=== PATIENT | female | born 1965 | race Caucasian/White ===

== ENCOUNTER 2018-08-22 05:58 | Inpatient (IN) | payer OTHER ==
[2018-08-12 11:12] LABS: ABSOLUTE BASOPHILS 0.1 thou/uL (0.0-0.2); ABSOLUTE EOSINOPHILS 0.2 thou/uL (0.0-0.7); ABSOLUTE LYMPHOCYTES 2.4 thou/uL (0.8-5.3); ABSOLUTE MONOCYTES 0.7 thou/uL (0.0-1.2); ABSOLUTE NEUTROPHILS 4.3 thou/uL (1.6-8.1); BASOPHILS 1.3 %; EOSINOPHILS 2.2 %; HEMATOCRIT 41.1 % (37.0-47.0); HEMOGLOBIN 13.4 gm/dL (12.0-15.0); MCH 29.5 pg (26.0-34.0); MCHC 32.5 g/dL (28.0-37.0); MCV 90.9 fL (80.0-100.0); MONOCYTES 8.8 %; MPV 6.7 fl. (7.2-11.1); NUCLEATED RBCS 0 /100WBC; PLATELET COUNT* 404 thou/uL (150-400); POLYS 56.7 %; RBC 4.52 mil/uL (4.20-5.00); RDW-CV 15.4 % (10.5-14.5); WBC 7.6 thou/uL (4.0-11.0)
[2018-08-12 11:26] LABS: APTT 26.6 Seconds (25.0-31.3); PROTIME 10.1 Seconds (9.20-11.50)
[2018-08-12 11:32] LABS: ALBUMIN 3.2 g/dL (3.4-5.0); CALCIUM 9.1 mg/dL (8.5-10.1); POTASSIUM 4.1 mmol/L (3.5-5.1); TOTAL BILIRUBIN 0.4 mg/dL (<0.1-1.0); TOTAL PROTEIN 6.9 g/dL (6.4-8.2)
[2018-08-12 12:13] LABS: ESR (SEDRATE) 26 mm/hr (0-30)
[2018-08-12 19:12] LABS: GLYCOHEMOGLOBIN (HGB A1C) 5.9 % (4.8-5.6)
--- NOTE | 2018-08-14 15:32 | EKG ---
[place] [address] ELECTROCARDIOGRAM REPORT Name: JACEY SANCHEZ Room: PRE [facility]#: [id number] Admission: Attend Phys: Lupillo Carpio DO Discharge: Date of : 61 Report #: [id number] THIS REPORT FOR: //name// [facility] Test Date: 2018-08-12 Test Time: 11:06:18 Pat Name: JACEY SANCHEZ Department: Room: Gender: F Environmental Health Technologist: : 1965 Requested By: Lupillo Carpio Order Number: [id number] Reading MD: David iTdwell Measurements Intervals [place] Rate: 81 P: 41 NH: 148 QRS: 91 QRSD: 89 T: 43 QT: 362 QTc: 421 Interpretive Statements Sinus rhythm No previous ECG available for comparison Electronically Signed On 08-14-2018 15:32:04 QUOTATION CHECKER by David Tidwell [email or web address] <ELECTRONICALLY SIGNED> By: David Tidwell MD, [facility] 08/14/18 1532 1106 1106 David Tidwell MD, FACC /EPI
[~2018-08-22] VITALS: Ht 167.6 cm; Wt 117.1 kg
[~2018-08-22 05:58] MED LIST: AMBIEN 5 MG TABL5 M1 PO; CALCIUM500 MG PO; FLEXERIL PO; LISINOPRIL5 MG PO; MELATONIN3 MG PO; PRILOSEC 20 MG20 MG PO; PRINIVIL20 MG PO; SERTRALINE HCL50 MG PO; SIMVASTATIN40 MG PO; SYNTHROID125 MC1 PO; TRAMADOL 50 MG50 MG PO; UNICOMPLEX M TA1 TA1 PO; ZANAFLEX4 MG PO
[2018-08-22 06:30] VITALS: BP 133/78
[2018-08-22 17:00] VITALS: BP 123/63
[2018-08-22 17:30] VITALS: BP 118/64
[2018-08-22 18:00] VITALS: BP 122/68
--- NOTE | 2018-08-22 18:44 | NUR ---
VSS-AFEBRILE. LUNGS CLEAR-ROOM AIR. PAIN PARTIALLY CONTROLLED WITH PRESCRIBED PAIN MEDICATIONS. TOLERATED ORAL PAIN MEDS WELL FULL LIQUID DINNER WITHOUT REPORTS OF N/V. ICE PACK APPLIED TO LEFT HIP FOR COMFORT. ABLE TO FERNANDO, ALL SENSATION INTACT. MCCULLOUGH CATHETER DRAINING ADEQUATE AMOUNTS OF CLEAR YELLOW URINE TO DEPENDENT DRAINAGE BAG. CALLS APPROPRIATELY FOR ANY NEEDED ASSISTANCE.
[2018-08-23] VITALS: BP 97/59
[2018-08-23 04:00] VITALS: BP 118/64
[2018-08-23 04:25] LABS: HEMOGLOBIN 11.2 gm/dL (12.0-15.0)
--- NOTE | 2018-08-23 07:25 | NUR ---
PATIENT HAS SLEPT OFF AND ON DURING THE NIGHT BUT RESTLESS AT TIMES. VSS ON 2L 02 VIA NASAL CANNULA. MEDICATIONS GIVEN ORDERED AND CHARTED. DRESSING TO LEFT HIP IS C/D/I, SCD'S AND EBONY HOSE IN PLACE. NEW RIGHT EJ-SL. MCCULLOUGH TO DEPENDENT DRAINAGE WITH YELLOW URINE OUTPUT. PATIENT INSTRUCTED TO USE CALL LIGHT WHEN NEEDING ASSISTANCE. HOURLY ROUNDS MADE. WILL CONTINUE WITH PLAN OF CARE AND NURSING TO MONITOR.
[2018-08-23 08:29] VITALS: BP 108/52
[2018-08-23 16:00] VITALS: BP 109/69
--- NOTE | 2018-08-23 16:37 | NUR ---
SPOKE WITH PT.ABOUT DISCHARGE PLANNING. SHE LIVES ALONE AND NO ONE TO STAY WITH HER OR FOR HER TO STAY WITH. SON LIVES IN [place]. SHE WOULD LIKE TO GO TO A SNF OR SWING BED. DISCUSSED FACILITIES WITH HER. SHE THINKS SHE WOULD LIKE TO GO TO [facility] SWING BED. CM WILL MAKE REFERRAL FIRST THING IN AM.
--- NOTE | 2018-08-23 16:37 | NUR ---
PATIENT REMAINS ALERT AND ORIENTED. PAIN PARTIALLY CONTROLLED. DILAUDID,OXYIR,FLEXERIL,AND TRAMADOL USED PRN. WORKED WITH PT/OT-ONLY MADE IT TO EDGE OF BED. REFUSED TO HAVE MCCULLOUGH REMOVED THIS SHIFT DUE TO PAIN AND INABILITY TO MOVE. REFUSES TO TURN. TOTAL HIP PRECAUTIONS IN PLACE. ABDUCTOR WEDGE IN USE. SCD'S AND TEDS IN PLACE. ICE PACK IN PLACE. DRESSING TO LEFT HIP C/D/I. REQUEST SNF AT OR. BED ALARM IN USE. SAT 95% ON 2L. CALL LIGHT WITHIN REACH. WILL CONTINUE TO MONITOR.
[2018-08-24] VITALS (7 sets, daily range): BP systolic 90–117; BP diastolic 49–73
[2018-08-24 04:48] LABS: HEMATOCRIT 31.7 % (37.0-47.0); HEMOGLOBIN 10.7 gm/dL (12.0-15.0)
--- NOTE | 2018-08-24 07:35 | NUR ---
PATIENT SLEPT WELL THROUGHOUT THE NIGHT. VSS ON RA, ALTHOUGH PULSE IS TACHY. PAIN MEDICATIONS GIVEN ORDERED AND CHARTED. SADIA REMOVED THIS AM AND PATIENT TOLERATED WELL. DRESSING TO LEFT HIP IS C/D/I, EBONY HOSE AND SCD'S IN PLACE. PATIENT REFUSING TURNS. RIGHT EJ-SL. PATIENT INSTRUCTED TO USE CALL LIGHT WHEN NEEDING ASSISTANCE. HOURLY ROUNDS MADE. WILL CONTINUE WITH PLAN OF CARE AND NURSING TO MONITOR.
--- NOTE | 2018-08-24 15:00 | NUR ---
HAD FAXED REFERRAL FOR SNF BED TO [facility] SWING BED. PT. WANTED TO SPEAK WITH CM. SHE TOLD ME SHE DECIDED AGAINST THE SWING BED UNIT. WAS WONDERING IF [facility] HAD ANY SNFS. TOLD HER ABOUT [facility]. SHE SAID HER UNCLE LIVED THERE, LTC. SHE WOULD LIKE A REFERRAL MADE THERE IF THEY TAKE SKILLED PTS. TOLD HER THEY DID. CM FAXED INFORMATION TO ADMISSIONS AT [phone]. LEFT MESSAGE ON ADMISSIONS -[phone].
--- NOTE | 2018-08-24 18:03 | NUR ---
ASSUMED CARE OF PATIENT AFTER MORNING REPORT AT APPROX 0740. ALERT AND ORIENTED X4. ASSESSMENT COMPLETED AND CHARTED. VSS ON ROOM AIR. NO COMPLAINTS OF NAUSEA OR SOA. PAIN HAS BEEN MANAGED WITH PAIN MEDICATION. PATIENT WORKED WELL WITH THERAPIES TODAY. HOURLY ROUNDS COMPLETED, CALL LIGHT IN REACH, NURSING WILL CONTINUE TO MONITOR.
--- NOTE | 2018-08-25 04:15 | NUR ---
ASSUMED PATIENT CARE AT 1900. PATIENT ASLEEP IN BED AT SHIFT CHANGE. CORPORATE HEALTH CONSULTANT OCMPLETED AND VITAL SIGNS OBTAINED. PATIENT STATED THAT SHE WOULD RATHER HAVE SLEEPING MEDICATION OPPOSED TO PAIN MEDICATION. PATIENT STATED THAT SHE WAS UP EARLIER IN THE DAY TO THE BEDSIDE COMMODE WITH ASSISST OF 3. HOWEVER, PATIENT DID NOT WANT STAFF TO EVEN ROLL HER TO GET ON THE BEDPAN, YELLING IN PAIN. ORAL PAIN MEDICATION GIVEN AND PATIENT WAS AGAIN SLEEPING AT CHECK. DRESSING TO SITE IS C/D/I. BRUISING NOTED TO TISSUE IMMEDIATLEY SURROUNDING DRESSING. ALERT AND ORIENTED TIMES FOUR. EDUCATION DONE ON WHAT TYPE OF PROGRESS IS EXPECTED. HIP PRECAUTIONS IN PLACE. CORPORATE HEALTH CONSULTANT AND HOURLY ROUNDING COMPLETED DOCUMENTED. FALL RISK PRECAUTIONS IN PLACE
[2018-08-25 09:16] VITALS: BP 132/77
--- NOTE | 2018-08-25 12:05 | PATH ---
[address] [address] PATHOLOGY RPT PROCEDURE Name: HEAVENLY BARCLAY Room: [address] IN M.R.#: [id number] Admission: 08/22/18 Date of : 61 Discharge: Report #: [id number] Path Case #: [id number] [facility] Accession Number: [id number] . 01 Material submitted: . LEFT HIP TISSUE FOR PMN FOR HIGH POWER FIELD - FS . 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 (GEETA:[facility] 08/24/2018) QTP/08/24/2018 . 02 Electronically signed: . Greg Alatorre MD, Pathologist NPI- [id number] . 01 Gross description: . Received fresh from the operating room accompanied by a label marked, "Heavenly Barclay, left hip tissue for PMN for high-power field" and consists of two segments of yellow-kam hemorrhagic soft tissues having aggregate greatest dimension of 1.8 x 1.0 [address] Carpio notes this patient previously had a hip replacement and intraoperatively there is an appearance of metallosis with an unusual whitish color and requests intraoperative evaluation for the possibility of infection, noting that the gram stain is resulted as negative. A TouchPrep is prepared of both fragments and all of the specimen is submitted for frozen studies with the remainder of that tissue frozen submitted in cassette A1. (GEETA:[facility] 08/22/2018) . . FROZEN SECTION WITH TOUCH PREP: Left hip: - Benign fibrofatty tissue and skeletal muscle with less than 5 PMNs per high power field on average. (GEETA:[facility] 08/22/2018) . Frozen section and touch preparation performed at [facility], [address] [place] [address]. /QTP . 02 Pathologist provided ICD-10: T84.091A . 02 [facility] [address] [place] [address] PATHOLOGY RPT PROCEDURE Name: HEAVENLY BARCLAY Room: [address] IN M.R.#: [id number] Admission: 08/22/18 Date of : 61 Discharge: Report #: [id number] Path Case #: [id number] [facility] . [id number], [id number] Specimen Comment: A courtesy copy of this report has been sent to Specimen Comment: [phone], . Specimen Comment: Report sent to / DR GRANDE Specimen Comment: A duplicate report has been generated due to demographic updates. Performed at: [address], [place] [id number] MD Alex Luo MD Phone: [phone] Performed at: 02 [facility] [address], [place], [place] [id number] MD Greg Alatorre MD Phone: [phone]
--- NOTE | 2018-08-25 15:01 | NUR ---
[facility] [place] CALLED THIS AM AND HAD RECEIVED THE REFERRAL I SENT YESTERDAY. SHE SAID THEY CAN ACCEPT PT.MEDICALLY BUT WILL NEED TO OBTAIN INSURANCE AUTHORIZATION. PT.AND NURSING INFORMED.
[2018-08-25 16:23] VITALS: BP 92/59
--- NOTE | 2018-08-25 17:34 | NUR ---
PT REMAINED ALERT AND ORIENTED THIS SHIFT. PT WORKED WITH THERAPY TWICE TODAY AND GOT UP TO CHAIR. PT C/O PAIN, MEDS GIVEN ORDERED. HIP PRECAUTIONS MAINTAINED. TRANSFER TO COMMODE MAX ASSIST X2-3 WITH WALKER AND GAIT BELT. Q2 TURNS COMPLETED, PT DID STATE THEY REPOSITIONED THEMSELVES OCCASSIONALLY. FALL RISK PRECAUTIONS IN PLACE. HOURLY ROUNDING COMPLETED. WILL CONTINUE TO MONITOR.
[2018-08-25 21:04] VITALS: BP 113/68
--- NOTE | 2018-08-26 05:13 | NUR ---
ASSUMED CARE OF PATIENT AFTER REPORT AT APRROX 1950. ALERT AND OREINTED X4. ASSESSMENT COMPLETED AND CHARTED. VSS ON ROOM AIR. NO COMPLAINTS OF NAUSEA OR SOA. PAIN HAS BEEN MANAGED WITH ORAL MEDICATION. PATIENT UP WITH 2 TO BEDSIDE COMMODE. PATIENT REQUESTED AMBIEM FOR SLEEP AND SLEPT WELL, ASKED NOT TO BE WOKEN UP FOR TURNS SHE HAS NOT SLEPT WELL THE LAST FEW NIGHTS. PATIENT INSTRUCTED TO SELF TURN SHE IS ABLE TO DO SO, VERBALIZED UNDERSTANDING THAT TURNING WILL PREVENT SKIN BREAKDOWN. HOURLY ROUNDS COMPLETED, CALL LIGHT IN REACH, FALL PRECAUTIONS IN PLACE, NURSING WILL CONTINUE TO MONITOR.
[2018-08-26 08:45] VITALS: BP 132/78
--- NOTE | 2018-08-26 13:30 | NUR ---
[facility] CALLED AND SAID THEY HAD AUTH FROM INSURANCE FOR PT.TO COME TO SNF. FAXED HER ORDERS FROM HOSPITALIST AND ORTHO. SHE SAID THEY DO HAVE A [facility] AND THEY CAN COME TO GET PT. SHE WILL CALL CM BACK WITH A TIME. 1440-[facility] HERE TO GET PT.AND NO ONE HAD CALLED THAT THEY WERE COMING. P.T.WORKING WITH PT. AND WAS NOT READY. [facility] WAITED FOR PT.TO FINISH,GET IV REMOVE AND DRESSED. APOLOGIZED TO PT.THAT SHE WAS NOT TOLD OF TIME OF RAILROAD POLICE BUT CM WASN'T INFORMED BY SURAJ MANDUJANO. CHART COPIED. NURSING CALLED REPORT.
[2018-08-26] MEDS ORDERED: ELIQUIS2.5 MG PO (13:33)
[2018-08-26] MEDS ORDERED: PERCOCET PO (13:36)
[2018-08-26] MEDS ORDERED: OXYCODONE HCL 55 MG PO (13:38)
[2018-08-26 13:39] VITALS: BP 132/78
[2018-08-26] MEDS ORDERED: ASPIRIN325 PO (13:52)
[2018-08-26 14:51] VITALS: BP 132/78
[2018-08-26 15:09] VITALS: BP 132/78
--- NOTE | 2018-08-26 15:09 | NUR ---
PT TRANSFERRED TO PRISON FACILITY. CHART COPIED AND SENT WITH TRANSPORTERS. PRESCRIPTIONS SENT, CARE NOTES. IV REMOVED. PT BELONGINGS GATHERED. GAVE REPORT TO NURSE AT FACILITY. PT LEFT VIA WHEELCHAIR WITHG TRANSPORTER AND NURSING STAFF TO NEW FACILITY. FALL RISK PRECAUTIONS IN PLACE. HOURLY ROUNDING COMPLETED.
--- NOTE | 2018-08-29 10:33 | OP ---
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 POSTOPERATIVE DIAGNOSIS: Left hip pain with patient concern for gdevs-vs-mmkqw hip with metallosis. PROCEDURE: Revision of the left total hip arthroplasty with revision of femoral head, femoral neck, femoral stem. An extended trochanteric osteotomy. SURGEON: Lupillo Carpio DO HAND DRAWER IN HELPER: Raj Nix DO. ANESTHESIA: General endotracheal. COMPLICATIONS: None. ANTIBIOTICS: 2 grams Ancef IVPB 30 minutes prior to incision and 2 grams repeated at roughly 1325 hours. EXPLANTS: A Biomet magnum M2A total hip with the femoral head, the femoral stem. IMPLANTS: Prema high offset cone proximal body size B, 60 mm. A small trochanteric claw, 100 mm. A modular revision hip system, distal stem with locking screw 150 x 15 mm, an E1 antioxidant infused dual mobility bearing 28 mm head size, 46 mm bearing size and a 28 mm ceramic head with a -3 mm taper adapter. A lateral bolt for the trochanteric claw. ESTIMATED BLOOD LOSS: 550 mL. COMPLICATIONS: None. MEDICATIONS: She received 2 grams of vancomycin powder topically. She received TXA topically 1 gram. [place] [id number] OPERATIVE REPORT Name: JACEY SANCHEZ Room: [address]#: [id number] Admission: 08/22/18 Attend Phys: Maria Esther Baer Discharge: 08/26/18 Date of : 61 Report #: [id number] INDICATIONS FOR SURGERY: The patient is a 53-year-old female who underwent total hip replacements bilaterally roughly a decade ago. Since that time, she has had some increasing concerns regarding evffa-tc-bmyau hips. She has been in contact with a assembler deck and hull and also has been tested for metallosis. 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 The patient has a full explanation of the risks and complications associated with this procedure. She understands that we have discussed the possibility of a simple head revision versus a head and stem revision versus the entire hip including acetabular revision. We have also talked about the various risks, complications that can occur, but are not limited to neurovascular damage, infection, fracture, need for further surgery, failure of the prosthesis, recall of prosthesis, allergy developed to prosthesis, deep vein thrombosis, pulmonary emboli, myocardial infarction, rhabdomyolysis, blood loss, blood transfusion reaction, leg length inequality, Trendelenburg gait, antalgic gait, cardiac arrest and even . We talked about anesthesia; however, Anesthesia will go over their risks with her in a more detailed manner. Signed informed consent has been attached to chart. All questions have been answered and her hip is marked preoperatively for timeout technique. DESCRIPTION OF PROCEDURE: The patient was taken to the operating suite and placed on the operating room table in the lateral decubitus position. All pressure points were well padded. The left hip was prepped and draped in the usual sterile fashion. The previous surgical incision is outlined and utilized once again. Incision made through skin and subcutaneous tissue down to the tensor fascia. Tensor fascia was then incised in line with the skin incision. Self-retaining retractors were placed. Scar tissue is abundant and planes were developed to a more normal musculature. The hip was then flexed and externally rotated to bring the gluteus attachments of the gluteus medius minimus into play. These are resected at an area of attachment on the greater trochanter to allow access to the hip joint itself. The capsule was also developed from scar tissue and dissected off the gluteus musculature. The capsule was split in a H capsulorrhaphy and the femoral head was then retracted. Initially upon entering into the capsule, there was roughly 10-15 mL of cloudy fluid; however, no purulence and no foul odor noted. This was immediately aspirated with a small syringe and sent to pathology for multiple testings. The stat test was for Gram stain as well as tissue that was immediately sent for PMNs per high-powered field to determine if there was any significant potential for infection; however, this did not appear to be in any way an infected total hip arthroplasty. Once the H capsulorrhaphy was performed and the hip was dislocated, evaluation of the hip was performed. Very minimal metallosis or blackening of the tissue was noted. Most of the tissue appeared to be extremely normal; however, thickened. There were specific areas, however, of changes in the tissue indicating irritation and inflammation. These were dissected out, some were sent for evaluation. There was a fairly large area of roughly 3-4 [place] [address] OPERATIVE REPORT Name: JACEY SANCHEZ Room: [address]#: [id number] Admission: 08/22/18 Attend Phys: Maria Esther Baer Discharge: 08/26/18 Date of : 61 Report #: [id number] in diameter to the lateral aspect superiorly of the proximal femoral neck where significant bony erosion had occurred, a reaction to the total hip prosthesis most likely and/or the procedure itself that was debrided out. With this in mind, it was decided that not simply a head replacement would be performed, but a head and stem. An attempt to remove the head was performed with the use of a bony tamp and a mallet directly at the base of the femoral head; however, it was cold welded into place. Therefore, an extended trochanteric osteotomy was then performed by enlarging the incision distally, appropriate retractors in place and running drill holes in a line down the posterolateral corner of the femur, then rotating the femur and doing it to the posterior aspect of the femur more on the edge of the medial side. A bony window was then opened. The prosthesis was easily removed. The bony architecture was easy to reconstruct. Copious irrigation carried out throughout the incision. The bone was inspected. The bony window was reduced and multiple cables were then placed from distal to proximal about the osteotomy. They were tensioned into place. Anatomic alignment was achieved and the tensioned cables were then crimped and cut to maintain the reduction. Next, the femoral stem was reamed with the Prema system. A 15 mm reamer fit well. During the reaming of the more proximal aspect for the cone body, the greater trochanter fractured at the very edge of the weakened described cystic change from previous description. This was easily worked around and after the Prema system was tested the final stem was placed. The size B proximal cone body was then trialled with the various sized neck lengths. Anesthesia Attending intraoperative x-rays were obtained using crosstable x-rays. Excellent alignment was noted. The leg length appeared to be near anatomic if not just a small amount longer. The hip was extremely stable. The final components were obtained. Copious irrigation carried out throughout the incision. The final cone body is impacted firmly into place with roughly 12 degree version and held in place with a locking screw. The final -3 taper adapter and ceramic head with a dual mobility bearing was then impacted firmly onto a clean, dry Lai taper neck. At this time, the trochanteric claw was placed on the greater trochanter. The trochanter was reduced. The drilling apparatus was located appropriately and the trochanter was drilled. The locking bolt was placed and this made for excellent stability of the greater trochanteric fracture. It was reduced in near anatomic position. A cable was placed in the distal aspect of the trochanteric claw to stabilize that end of things. Copious irrigation carried out throughout the incision once again. Final reduction was performed. The hip was tested for stability and had excellent stability throughout the entire arc of motion. The osteotomy was in excellent reduction. The hip was then closed using #1 FiberWire in interrupted rkbzmo-ww-ykirn fashion sutures to the capsule as well as to the gluteus, which was reattached with tendon to bone fixation on the greater trochanter, oversewed with #1 Vicryl. The tensor fascia was reapproximated with the use of running #1 Quill. The skin was reapproximated with 2-0 Monocryl subcutaneous sutures followed by running 3-0 Stratafix subcuticular suture. This was reinforced with Dermabond glue. A dry Mepilex dressing was applied. Thigh high EBONY hose were applied. The patient was taken to recovery room in stable condition. [address] [address] OPERATIVE REPORT Name: JACEY SANCHEZ Room: [address] IN [facility]#: [id number] Admission: 08/22/18 Attend Phys: Maria Esther Baer Discharge: 08/26/18 Date of : 61 Report #: [id number] complications were encountered. Final instrument count, sponge count was correct x 2. She had roughly 550 EBL, none was returned via Cell Saver as she was not unstable throughout the entire procedure and did quite well. A Carballo catheter had been in place throughout the procedure and she was followed closely by Anesthesia. <ELECTRONICALLY SIGNED> By: Lupillo Carpio DO 08/29/18 1033 1758 [id number] Carpio DO /nt
== END 2018-08-26 15:11 | DRG 467 ==
LOC: M.TBA 05:58 → M.SUR 06:45 → EDSTATUS 10:26 → M.PRE 10:30 → M.SUR 12:16 → M.ORTHSURG 16:34
PROVIDERS: Orthopaedic Surgery; ADMIT Internal Medicine
DX: M16.12 Unilateral primary osteoarthritis, left hip (principal); D62 Acute posthemorrhagic anemia; Z68.41 Body mass index [BMI] 40.0-44.9, adult; E66.01 Morbid (severe) obesity due to excess calories; K58.9 Irritable bowel syndrome, unspecified; K21.9 Gastro-esophageal reflux disease without esophagitis; G89.29 Other chronic pain; M79.7 Fibromyalgia; Z87.891 Personal history of nicotine dependence; Z90.710 Acquired absence of both cervix and uterus; Z79.899 Other long term (current) drug therapy